=== PATIENT | female | born 1990 | race Native Hawaiian/Other Pacific Islander ===

== ENCOUNTER 2018-11-05 22:04 | Outpatient (CLI) | payer OTHER, BC | END 2018-11-05 22:18 | disposition short-term general hospital (02) | LOC: AMB 22:04 | DX: M25.551 Pain in right hip (principal); S70.211A Abrasion, right hip, initial encounter; V49.9XXA Car occupant (driver) (passenger) injured in unspecified traffic accident, initial encounter; Y92.413 State road as the place of occurrence of the external cause | CPT/HCPCS: A0425; A0429 ==

== ENCOUNTER 2018-11-05 22:25 | Emergency (ER) | payer BC ==
[~2018-11-05] VITALS: Ht 162.6 cm; Wt 72.6 kg
[2018-11-05 23:18] LABS: PLATELET COUNT 250 K/uL (152-353)
[2018-11-06 02:03] VITALS: BP 118/70; TEMP 97.8
== END 2018-11-06 02:04 | disposition home or self-care (01) ==
LOC: ED 22:25
PROVIDERS: Student in an Organized Health Care Education/Training Program
DX: S30.1XXA Contusion of abdominal wall, initial encounter (principal); S40.012A Contusion of left shoulder, initial encounter; V49.40XA Driver injured in collision with unspecified motor vehicles in traffic accident, initial encounter
CPT/HCPCS: 36415; 80053; 81000; 85027; 96360; 96375; 99284; J2270; J2405; Q9963